=== PATIENT | male | born 1960 | race Two or more races ===

== ENCOUNTER 2019-03-20 05:46 | Day surgery (SDC) | payer OTHER ==
[~2019-03-20 05:46] MED LIST: AZITHROMYCIN600 MG PO; CLONAZEPAM1 MG PO; DESCOVY 200-251 EACH PO; DOCUSATE SODIU100 MG PO; ISENTRESS HD600 MG PO; PERCOCET 5-3251 EACH PO; SULFA PO; [UNRECOGNIZED DRUG - OTHER]
[2019-03-20] MEDS ORDERED: PERCOCET 5-3251 EACH PO (11:28)
[2019-03-20] MEDS ORDERED: COLACE100 MG PO (11:28)
[2019-03-20] MEDS ORDERED: NEURONTIN300 MG PO (11:31)
== END 2019-03-20 13:40 | disposition home or self-care (01) ==
LOC: CIR.AMB 05:46 → ADM 14:45 → CIR.AMB 14:45
DX: C21.1 Malignant neoplasm of anal canal (principal); D01.3 Carcinoma in situ of anus and anal canal; A63.0 Anogenital (venereal) warts

== ENCOUNTER 2019-04-24 05:00 | Day surgery (SDC) | payer OTHER ==
[~2019-04-24 05:00] MED LIST changes: +COLACE100 MG PO; +NEURONTIN300 MG PO; +SULFAMETHOXAZO1 EACH PO
[2019-04-24] MEDS ORDERED: PERCOCET 5-3251 EACH PO (10:30)
== END 2019-04-24 11:45 | disposition home or self-care (01) ==
LOC: CIR.AMB 05:00
DX: C21.1 Malignant neoplasm of anal canal (principal)
CPT/HCPCS: 36561; C1751

== ENCOUNTER 2019-08-24 08:45 | Day surgery (SDC) | payer OTHER | END 2019-08-24 13:25 | disposition home or self-care (01) | LOC: AMB-ENDOS 08:45 | PROVIDERS: ATTEND Surgery | DX: K62.89 Other specified diseases of anus and rectum (principal) ==

== ENCOUNTER 2022-04-06 05:45 | Day surgery (SDC) | payer OTHER | END 2022-04-06 10:35 | disposition home or self-care (01) | LOC: AMB-ENDOS 05:45 | PROVIDERS: ATTEND Surgery | DX: K57.30 Diverticulosis of large intestine without perforation or abscess without bleeding (principal); K62.89 Other specified diseases of anus and rectum; K62.7 Radiation proctitis; Z20.822 Contact with and (suspected) exposure to COVID-19 ==

== ENCOUNTER → 2024-11-24 | Day surgery (SDC) | payer OTHER ==
[2024-11-17 12:36] LABS: BASO % 0.9 % (0.1-1.2); EOS # 0.20 (0.04-0.54); EOS % 3.4 % (0.7-7.0); LYMPH # 1.20 (1.18-3.74); LYMPH % 20.4 % (19.3-53.1); MEAN PLATELET VOLUME 9.50 fl (9.4-12.4); MONO # 0.59 (0.24-0.82); MONO % 10.0 % (4.7-12.5); NEUT # 3.82 (1.56-6.13); NEUT % 65.0 % (34.0-71.1); RED CELL DISTRIBUTION WIDTH 12.2 % (11.6-14.4)
[2024-11-17 12:37] LABS: URINE APPEARANCE Clear; URINE BILIRRUBIN Negative (NEGATIVE); URINE BLOOD Negative; URINE COLOR Yellow; URINE GLUCOSE Negative (NEGATIVE); URINE KETONE Negative (NEGATIVE); URINE LEUKOCYTE Trace; URINE NITRATE Negative; URINE PROTEIN Trace (NEGATIVE); URINE UROBILINOGEN 1.0 E.U./dl
[2024-11-17 12:38] LABS: URINE BACTERIA 4.7 uL (0.0-1933); URINE EPITHELIAL CELLS 3.5 uL (0.0-38.8); URINE RBC 6.5 uL (0.0-20.8); URINE WBC 7.5 uL (0.0-23.2)
[2024-11-17 12:55] LABS: INR 0.95
[2024-11-17 12:59] VITALS: BP 120/74
[2024-11-17 13:13] LABS: URINE CAST 0.14 uL (0.0-1.40)
[2024-11-17 13:20] LABS: ALT/SGPT 23.0 U/L (12-78); AST/SGOT 17.0 U/L (15-37); BILIRUBIN TOTAL 0.62 mg/dL (0.3-1.2); BUN CREA RATIO 13.0 (7.0-25.0); CREATININE SERUM 1.26 mg/dL (0.70-1.30); GFR 57.99; GLOBULINA 3.5 G/DL (2.4-3.5); GLUCOSE FASTING 92.0 mg/dL (65-100); OSMOLALITY SERUM 281.0 MOSM/KG (275-295)
[~2024-11-24] VITALS: Ht 170.2 cm; Wt 79.4 kg
[~2024-11-24] MED LIST changes: +BUPIVACAINE HCL/MPF 0.5% 30ML VIAL ONE; +CEFTRIAXONE SODIUM 2,000 MG VIAL ONE; +DIBUCAINE 30 GM TUBE ONE; +HEMOSTATIC MATRIX 1 KIT KIT TOP ONE; +LIDOCAINE HCL 1%/EPINEPHRINE 20ML VIAL IJ ONE; +METRONIDAZOLE/SODIUM CHLORIDE 500 MG/100 ML PIGGYBACK IV ONE; +POVIDONE-IODINE 118 ML BOTT TOP ONE; +TIVICAY50 MG PO; +TRAM1TAB98 PO; +ZIPSOR25 MG PO
== END | disposition home or self-care (01) ==
LOC: ADM 11-17 10:15 → CIR.AMB 11-20 10:15
PROVIDERS: ATTEND Surgery
DX: D01.3 Carcinoma in situ of anus and anal canal (principal); A63.0 Anogenital (venereal) warts; D12.9 Benign neoplasm of anus and anal canal; K62.89 Other specified diseases of anus and rectum